=== PATIENT | male | born 1935 | race Caucasian/White ===

== ENCOUNTER → 2018-10-13 08:29 | Outpatient (CLI) | payer MEDICARE, OTHER ==
[2016-08-12 07:44] VITALS: BMI 25.8
[~2018-10-13 08:29] MED LIST: BAYER CHEWABLE81 MG PO; BETAPACE 80 MG80 MG PO; COZAAR25 MG PO; FLOMAX0.4 MG PO; GINKO; IMBRUVICA140 MG PO; JAKAFI5 MG PO; METAMUCIL PACKE1 PKT PO; MULTIPLE VITAMI1 TA1 PO; PLAVIX75 MG PO; PROBENECID500 MG PO; PROBIOTIC1 EAC1 PO; PROZAC20 MG PO; SAW PALMETTO450 MG PO; TOPROL XL25 MG PO; ZYLOPRIM300 MG PO
--- NOTE | 2018-10-14 16:39 | ST ---
PATIENT:DANIA SAUL MEDICAL RECORD: [id number] SEX: M [facility] ORDER #: ADMISSION DATE: 10/13/18 AGE OF PATIENT: 83 REFERRING PHYSICIAN: INTERPRETING PHYSICIAN: YONAS LIRA MD DATE OF SERVICE: 10/13/2018 PROCEDURE: Nuclear Stress Test. INDICATION: Angina, coronary artery disease, shortness of breath, and hypertension. It was pharmacologic. DESCRIPTION: The patient was exercised on standard Lexiscan protocol with 30 mCi of sestamibi injected at peak stress, 11 mCi were used previously for rest images. FINDINGS: Gated SPECT reveals an excellent ejection fraction at 67% with good wall motion thickening and brightness throughout the segments. SPECT IMAGING: Cardiolite was used for a myocardial perfusion agent. There is homogeneous uptake throughout all segments at rest and stress with no evidence of inducible ischemia or previous infarction. OVERALL IMPRESSION: This is a normal rest-stress Cardiolite with no evidence of inducible ischemia or previous infarction. A gated SPECT reveals preserved ejection fraction greater than 60%. At this time I would evaluate noncardiac etiology of chest pain. TRANSINT:[id number] Voice Confirmation ID: [id number] DOCUMENT ID: [id number] YONAS LIRA MD at 1639 CC: REGINALDO CHING MD [id number] DICTATION DATE: 10/13/18 1613 FLOW MANAGER: 10/14/18 0746 [facility] CLI 10/13/18 [facility] [address] [place] [address]
== END | disposition home or self-care (01) ==
LOC: D.HCCARDIO 08:29
DX: I25.119 Atherosclerotic heart disease of native coronary artery with unspecified angina pectoris (principal); I10 Essential (primary) hypertension

== ENCOUNTER → 2019-01-25 08:32 | Outpatient (CLI) | payer MEDICARE, OTHER ==
[2016-08-12 07:44] VITALS: BMI 25.8
--- NOTE | 2019-01-27 10:39 | EC ---
PATIENT:DANIA SAUL DATE OF SERVICE: 01/25/19 SEX: M MEDICAL RECORD: [id number] DATE OF : [birth year] [facility] AGE OF PATIENT: 83 ADMISSION DATE: 01/25/19 REFERRING PHYSICIAN: INTERPRETING PHYSICIAN: YONAS GALVIN MD ECHOCARDIOGRAM REPORT ECHO CHARGES 4 ECHO COMPLETE Date: 01/25/19 CLINICAL DIAGNOSIS: ASSESS EF, EDEMA ECHOCARDIOGRAPHIC MEASUREMENTS (adult normal given) AC root (d.<3.7cm) 3.1 cm LV Septum d (<1.2 cm> 1.4 cm Valve Excursion 1.7 cm LV Septum (systole) 1.5 cm Left Atria (s.<4.0cm> 3.9 cm LVPW d(<1.2cm) 1.1 cm RV (d.<2.3cm) 3.1 cm LVPW (sytole) 1.8 cm LV diastole(<5.6CM) 5.6 cm MV E-F(>70mm/sec) cm LV systole 4.3 cm LVOT Diameter 1.8 cm MV exc.(>10mm) cm Est.ejection fraction (50-75%) % DOPPLER: LVIT cm/sec A 62 cm/sec E 62 cm/sec LA cm/sec RVSP 38.6 mmHg LVOT 101 cm/sec AOP1/2T m/s Asc. Ao 135 cm/sec RVOT 48 cm/sec RA cm/sec PA 89 cm/sec AV Gradient Peak 7.3 mmHg AV Mean 3.8 mmHg AV Area 2.0 cm MV Gradient Peak 2.8 mmHg MV Mean 1.3 mmHg MV Area cm COMMENTS: Pattern Maker: Tulio BOURGEOIS Worm Grower: 1 Dr. Galvin TAPE# PACS Pericardial Effusion N DATE OF SERVICE: 01/25/2019 FINDINGS: 1. Left ventricular chamber size is within normal limits. Left ventricular systolic function is normal. Overall ejection fraction is estimated at 55%. 2. Left atrium is within normal limits. Right atrium and right ventricular chamber sizes are mildly dilated. 3. Valvular structures have normal structure and motion. 4. Doppler interrogation reveals mild mitral regurgitation and mild tricuspid regurgitation. No other valvular insufficiency or stenosis. Pulmonary systolic ECHOCARDIOGRAM REPORT [id number] DANIA SAUL pressure is estimated at 38 mmHg. 5. No evidence of pericardial effusion or left ventricular thrombus. TRANSINT:[id number] Voice Confirmation ID: [id number] DOCUMENT ID: [id number] YONAS GALVIN MD at 1039 CC: [id number] DICTATION DATE: 01/25/19 1210 WORKERS COMPENSATION ATTORNEY: 01/25/19 1417 [facility] CLI 01/25/19 [place] [id number] [place] [id number]
== END | disposition home or self-care (01) ==
LOC: D.ECHO 01-22 09:35
PROVIDERS: ATTEND Internal Medicine Medical Oncology
DX: C91.10 Chronic lymphocytic leukemia of B-cell type not having achieved remission (principal); D64.9 Anemia, unspecified; D47.1 Chronic myeloproliferative disease

== ENCOUNTER → 2019-07-20 08:48 | Outpatient (CLI) | payer OTHER ==
[2016-08-12 07:44] VITALS: BMI 25.8
[2019-07-20 10:11] LABS: BASOPHILS 0.2 % (0-2); EOSINOPHILS 0 % (0-7); HEMATOCRIT 39.5 % (42.0-54.0); HEMOGLOBIN 12.7 g/dL (13.5-17.5); IMMATURE GRANULOCYTES 0.2 % (0-5); LYMPHOCYTES 16.7 % (15-50); MCH 28.5 pg (26.0-34.0); MCHC 32.2 g/dL (31.0-37.0); MCV 88.8 fL (80.0-100.0); MEAN PLATELET VOLUME 9.5 fL (7.4-10.4); MONOCYTES 10.4 % (2-11); NEUTROPHILS 72.5 % (40-80); RBC 4.45 10x6/uL (4.20-6.10); RDW 15.5 % (11.5-14.5); WBC 4.2 10x3/uL (4.8-10.8)
[2019-07-20 10:15] LABS: PLATELET COUNT 113 10x3/uL (130-400)
--- NOTE | 2019-07-27 11:40 | EC ---
PATIENT:ADNIA SAUL DATE OF SERVICE: 07/20/19 SEX: M MEDICAL RECORD: [id number] DATE OF : 39 LOCATION:[facility] AGE OF PATIENT: 83 ADMISSION DATE: 07/20/19 REFERRING PHYSICIAN: INTERPRETING PHYSICIAN: YONAS GALVIN MD ECHOCARDIOGRAM REPORT ECHO CHARGES 4 ECHO COMPLETE Date: 07/20/19 CLINICAL DIAGNOSIS: ISHEMIC HEART DISEASE, LEUKEMIA ECHOCARDIOGRAPHIC MEASUREMENTS (adult normal given) AC root (d.<3.7cm) 3.1 cm LV Septum d (<1.2 cm> 0.8 cm Valve Excursion 1.7 cm LV Septum (systole) 1.5 cm Left Atria (s.<4.0cm> 4.1 cm LVPW d(<1.2cm) 1.3 cm RV (d.<2.3cm) 3.3 cm LVPW (sytole) 1.8 cm LV diastole(<5.6CM) 6.3 cm MV E-F(>70mm/sec) cm LV systole 3.8 cm LVOT Diameter 2.0 cm MV exc.(>10mm) cm Est.ejection fraction (50-75%) % DOPPLER: LVIT cm/sec A 52 cm/sec E 39 cm/sec LA cm/sec RVSP 29.6 mmHg LVOT 93 cm/sec AOP1/2T m/s Asc. Ao 130 cm/sec RVOT 49 cm/sec RA cm/sec PA 86 cm/sec AV Gradient Peak 6.8 mmHg AV Mean 3.5 mmHg AV Area 2.2 cm MV Gradient Peak 2.3 mmHg MV Mean 0.8 mmHg MV Area cm COMMENTS: Irrigator Overhead: Tulio BOURGEOIS No Bake Molder: 1 Dr. Galvin TAPE# PACS Pericardial Effusion N DATE OF SERVICE: 07/20/2019 FINDINGS: 1. Left ventricular chamber size is mildly dilated. Left ventricular systolic function is preserved at 55%. 2. Left atrium is enlarged at 4.1 cm. Right atrium and right ventricular chamber sizes are as well mildly dilated. 3. Valvular structures have normal structure and motion. 4. Doppler interrogation reveals mild mitral regurgitation, no other valvular insufficiency or stenosis. Pulmonary systolic pressure is estimated at 30 mmHg. ECHOCARDIOGRAM REPORT [id number] DANIA SAUL 5. No evidence of pericardial effusion or left ventricular thrombus. TRANSINT:[id number] Voice Confirmation ID: [id number] DOCUMENT ID: [id number] YONAS GALVIN MD at 1140 CC: [id number] DICTATION DATE: 07/20/19 1215 TRACK WATCHMAN: 07/20/19 1224 [facility] CLI 07/20/19 [place] [id number] [place] [id number]
== END | disposition home or self-care (01) ==
LOC: D.ECHO 07-19 09:35
PROVIDERS: ATTEND Orthopaedic Surgery
DX: C91.10 Chronic lymphocytic leukemia of B-cell type not having achieved remission (principal); I25.9 Chronic ischemic heart disease, unspecified

== ENCOUNTER → 2020-02-04 13:37 | Outpatient (CLI) | payer MEDICARE, OTHER ==
[2016-08-12 07:44] VITALS: BMI 25.8
== END | disposition home or self-care (01) ==
LOC: D.HCCECHO 13:37
PROVIDERS: ATTEND Internal Medicine Cardiovascular Disease
DX: I25.10 Atherosclerotic heart disease of native coronary artery without angina pectoris (principal)

== ENCOUNTER → 2020-02-07 10:34 | Outpatient (CLI) | payer MEDICARE, OTHER ==
[2016-08-12 07:44] VITALS: BMI 25.8
== END | disposition home or self-care (01) ==
LOC: D.HCCARDIO 10:30
PROVIDERS: ATTEND Internal Medicine Cardiovascular Disease
DX: I25.10 Atherosclerotic heart disease of native coronary artery without angina pectoris (principal)

== ENCOUNTER 2020-02-18 11:57 | Outpatient (CLI) | payer MEDICARE, OTHER ==
[~2020-02-18] VITALS: Ht 188 cm; Wt 84.1 kg
[2020-02-18 13:42] VITALS: Ht 188 cm; Wt 84.1 kg
--- NOTE | 2020-02-18 14:40 | NUR ---
1420 PT DENIES RASH,SOB OR CP. STATES HE FEELS FINE AFTER TRANSFUSION OF PLATELETS. IV DC'D. CATHETER TIP INTACT. PRESSURE HELD FOR 5 MINUTES. NO BLEEDING AT SITE AFTER HOLDING PRESSURE. COBAN DRESSING APPLIED. PT READY FOR DISCHARGE HOME
== END 2020-02-18 14:32 | disposition home or self-care (01) ==
LOC: D.OPS 11:57
PROVIDERS: ATTEND Internal Medicine Medical Oncology
DX: D69.6 Thrombocytopenia, unspecified (principal)

== ENCOUNTER 2020-02-25 12:20 | Outpatient (CLI) | payer MEDICARE, OTHER ==
[2020-02-18 13:42] VITALS: BMI 23.8
== END 2020-02-25 14:25 | disposition home or self-care (01) ==
LOC: D.OPS 12:20
PROVIDERS: ATTEND Internal Medicine Medical Oncology
DX: D69.6 Thrombocytopenia, unspecified (principal)

== ENCOUNTER → 2020-03-02 10:49 | Outpatient (CLI) | payer MEDICARE, OTHER ==
[2020-02-18 13:42] VITALS: BMI 23.8
== END | disposition home or self-care (01) ==
LOC: D.US 03-01 09:30
PROVIDERS: ATTEND Internal Medicine Medical Oncology
DX: C91.10 Chronic lymphocytic leukemia of B-cell type not having achieved remission (principal); D64.9 Anemia, unspecified; D47.1 Chronic myeloproliferative disease; C91.11 Chronic lymphocytic leukemia of B-cell type in remission; D69.6 Thrombocytopenia, unspecified; D63.1 Anemia in chronic kidney disease; N18.3 Chronic kidney disease, stage 3 (moderate)